=== PATIENT | female | born 1995 | race Caucasian/White ===

== ENCOUNTER → 2016-12-22 | Outpatient (CLI) | payer OTHER ==
[2016-12-22 18:43] LABS: FREE T4 0.95 NG/DL (0.78-1.33)
== END ==
LOC: M SMT 14:48
PROVIDERS: ATTEND Physician Assistant
DX: R07.89 Other chest pain (principal)

== ENCOUNTER → 2017-05-25 | Outpatient (CLI) | payer OTHER | LOC: M SMT 15:18 | PROVIDERS: ATTEND Family Medicine | DX: Z23 Encounter for immunization (principal) ==

== ENCOUNTER → 2017-06-02 | Outpatient (REF) | payer OTHER | LOC: M LAB REF 17:36 | PROVIDERS: ATTEND Advanced Practice Midwife | DX: Z12.4 Encounter for screening for malignant neoplasm of cervix (principal) ==

== ENCOUNTER → 2017-10-05 | Outpatient (CLI) | payer OTHER ==
[2017-10-05 13:18] LABS: MEAN CORPUSCULAR HGB CONC 33.7 g/dl (32.0-36.5); PLATELET COUNT, AUTOMATED 193 10^3/uL (150-450); RED CELL DISTRIBUTION WIDTH 12.2 % (11.5-14.5); WHITE BLOOD COUNT 5.2 10^3/uL (4.0-10.0)
[2017-10-05 13:34] LABS: ALBUMIN 3.9 GM/DL (3.2-5.2); ALBUMIN/GLOBULIN RATIO 1.11 (1.00-1.93); ALKALINE PHOSPHATASE 79 U/L (45-117); ALT/SGPT 39 U/L (12-78); ANION GAP 6 MEQ/L (8-16); AST/SGOT 18 U/L (7-37); BILIRUBIN,TOTAL 0.5 MG/DL (0.2-1.0); BLOOD UREA NITROGEN 16 MG/DL (7-18); CALCIUM LEVEL 8.8 MG/DL (8.5-10.1); CARBON DIOXIDE LEVEL 27 MEQ/L (21-32); CHLORIDE LEVEL 106 MEQ/L (98-107); CREATININE FOR GFR 0.89 MG/DL (0.55-1.02); GLUCOSE, FASTING 182 MG/DL (70-105); POTASSIUM SERUM 4.1 MEQ/L (3.5-5.1); SODIUM LEVEL 139 MEQ/L (136-145); TOTAL PROTEIN 7.4 GM/DL (6.4-8.2); URIC ACID 5.4 MG/DL (2.6-6.0)
[2017-10-05 17:19] LABS: ESTIMATED AVERAGE GLUCOSE 117 MG/DL (60-110)
== END ==
LOC: M SMT 10:36
DX: M25.541 Pain in joints of right hand (principal)
CPT/HCPCS: 84550

== ENCOUNTER → 2017-12-19 | Outpatient (CLI) | payer OTHER ==
[2017-12-19 12:18] LABS: ESTIMATED AVERAGE GLUCOSE 123 MG/DL (60-110); HEMOGLOBIN A1c 5.9 %
== END ==
LOC: M SMT 08:57
DX: R73.03 Prediabetes (principal)
CPT/HCPCS: 83036

== ENCOUNTER 2018-05-29 14:57 | Inpatient (IN) | payer OTHER ==
[2018-05-29 16:15] LABS: VENOUS BASE EXCESS -7.9 (-2.0-2.0); VENOUS HCO3 17.3 MEQ/L (23.0-27.0); VENOUS O2 SATURATION 92.9 % (60.0-80.0); VENOUS PARTIAL PRESSURE CO2 34.6 mmHg (38.0-50.0); VENOUS PARTIAL PRESSURE O2 65.3 mmHg (30.0-50.0); VENOUS PH 7.316 UNITS (7.330-7.430); VENOUS STANDARD HCO3 18.1 MEQ/L; VENOUS TOTAL CO2 18.3 MEQ/L (24.0-28.0)
[2018-05-29 16:20] LABS: BASO # 0.1 10^3/uL (0.0-0.2); BASO % 0.6 % (0.0-1.0); EOS # 0.1 10^3/uL (0.0-0.50); EOS % 0.7 % (0.0-3.0); HEMATOCRIT 40.2 % (36.0-47.0); HEMOGLOBIN 14.6 g/dl (12.0-15.5); IMMATURE GRANULOCYTE % 0.7 % (0-3.0); LYMPH # 1.9 10^3/uL (1.5-6.5); LYMPH % 18.7 % (24.0-44.0); MEAN CORPUSCULAR HEMOGLOBIN 31.2 pg (27.0-33.0); MEAN CORPUSCULAR HGB CONC 36.3 g/dl (32.0-36.5); MEAN CORPUSCULAR VOLUME 85.9 fl (80.0-96.0); MONO # 0.6 10^3/uL (0.0-0.8); MONO % 5.6 % (0.0-5.0); NEUTROPHILS # 7.5 10^3/uL (1.8-7.7); NEUTROPHILS % 73.7 % (36.0-66.0); PLATELET COUNT, AUTOMATED 159 10^3/uL (150-450); RED BLOOD COUNT 4.68 10^6/uL (4.00-5.40); RED CELL DISTRIBUTION WIDTH 12.4 % (11.5-14.5); WHITE BLOOD COUNT 10.2 10^3/uL (4.0-10.0)
[2018-05-29] MEDS: NS 1,000 ML IV ×3 (16:33→21:10)
[2018-05-29 16:36] LABS: ALBUMIN 3.7 GM/DL (3.2-5.2); ALBUMIN/GLOBULIN RATIO 1.19 (1.00-1.93); ALKALINE PHOSPHATASE 110 U/L (45-117); ALT/SGPT 25 U/L (12-78); ANION GAP 16 MEQ/L (8-16); AST/SGOT 11 U/L (7-37); BILIRUBIN,DIRECT 0.2 MG/DL (0.0-0.2); BILIRUBIN,TOTAL 0.7 MG/DL (0.2-1.0); BLOOD UREA NITROGEN 7 MG/DL (7-18); CALCIUM LEVEL 8.7 MG/DL (8.5-10.1); CARBON DIOXIDE LEVEL 20 MEQ/L (21-32); CHLORIDE LEVEL 98 MEQ/L (98-107); CREATININE FOR GFR 0.84 MG/DL (0.55-1.30); GLOMERULAR FILTRATION RATE > 60.0 (>60); LIPASE 85 U/L (73-393); POTASSIUM SERUM 3.6 MEQ/L (3.5-5.1); SODIUM LEVEL 134 MEQ/L (136-145); TOTAL PROTEIN 6.8 GM/DL (6.4-8.2)
[2018-05-29 16:40] LABS: GLUCOSE, FASTING 526 MG/DL (70-100)
[2018-05-29 16:41] LABS: ETHYL ALCOHOL (ETHANOL) < 0.003 % (0.000-0.010)
[2018-05-29] MEDS ORDERED: INSULIN IV RATE CHANGE DOCUMENTATION ML/HR XX (16:45)
[2018-05-29 16:55] LABS: ACETONE/KETONE > 46.00 MG/DL (<2.81)
[2018-05-29 17:03] LABS: AMPHETAMINES LEVEL URINE NEGATIVE (NEGATIVE); BARBITURATES URINE NEGATIVE (NEGATIVE); BENZODIAZEPINES URINE NEGATIVE (NEGATIVE); CANNABINOIDS URINE NEGATIVE (NEGATIVE); COCAINE METABOLITE URINE NEGATIVE (NEGATIVE); METHADONE URINE NEGATIVE (NEGATIVE); OPIATES URINE NEGATIVE (NEGATIVE); PHENCYCLIDINE URINE NEGATIVE (NEGATIVE)
[2018-05-29 17:07] LABS: CONTROL LINE HCG INT CTR LINE PRESENT; HCG, SERUM QUALITATIVE NEGATIVE (NEGATIVE)
[2018-05-29 17:14] LABS: KETONE, URINE AUTO RFX 2+ mg/dL (NEGATIVE); MUCUS, URINE RFX SMALL (NEGATIVE); NITRITE, URINE AUTO RFX NEGATIVE (NEGATIVE); RBC, URINE AUTO RFX 7 /HPF (0-3); SPECIFIC GRAVITY UR AUTO RFX 1.035 (1.002-1.035); SQUAM EPITHELIAL CELL UR AURFX 3 /HPF (0-6); WBC, URINE AUTO RFX 4 /HPF (0-3)
[2018-05-29 17:17] LABS: BEDSIDE GLUCOSE 465 MG/DL (70-105)
[2018-05-29] MEDS: INSULIN HUMAN REGULAR 100 UNITS in NS 99 ML IV ×2 (17:17→18:15)
[2018-05-29 17:19] LABS: LEUKOCYTE ESTERASE UR AUTO RFX TRACE (NEGATIVE)
[2018-05-29 18:10] LABS: BEDSIDE GLUCOSE 358 MG/DL (70-105)
[2018-05-29] MEDS: KCL 10MEQ/100ML SWI (KRUN) 10 MEQ in APPROPRIATE DILUENT 1 EA IV ×4 (18:39→23:57)
[2018-05-29 19:18] LABS: BEDSIDE GLUCOSE 231 MG/DL (70-105)
[2018-05-29] MEDS: INSULIN IV RATE CHANGE DOCUMENTATION ML/HR XX ×2 (19:18→23:08)
[2018-05-29 19:58] LABS: VENOUS BASE EXCESS -2.7 (-2.0-2.0); VENOUS HCO3 23.4 MEQ/L (23.0-27.0); VENOUS O2 SATURATION 63.1 % (60.0-80.0); VENOUS PARTIAL PRESSURE CO2 45.9 mmHg (38.0-50.0); VENOUS PARTIAL PRESSURE O2 30.7 mmHg (30.0-50.0); VENOUS PH 7.326 UNITS (7.330-7.430); VENOUS STANDARD HCO3 21.4 MEQ/L; VENOUS TOTAL CO2 24.8 MEQ/L (24.0-28.0)
[2018-05-29 20:03] LABS: BEDSIDE GLUCOSE 246 MG/DL (70-105)
[2018-05-29 20:29] LABS: ANION GAP 11 MEQ/L (8-16); BLOOD UREA NITROGEN 7 MG/DL (7-18); CALCIUM LEVEL 8.3 MG/DL (8.5-10.1); CARBON DIOXIDE LEVEL 25 MEQ/L (21-32); CHLORIDE LEVEL 106 MEQ/L (98-107); CREATININE FOR GFR 0.74 MG/DL (0.55-1.30); GLOMERULAR FILTRATION RATE > 60.0 (>60); GLUCOSE, FASTING 233 MG/DL (70-100); POTASSIUM SERUM 3.3 MEQ/L (3.5-5.1); SODIUM LEVEL 142 MEQ/L (136-145)
[2018-05-29 20:59] LABS: ESTIMATED AVERAGE GLUCOSE 306 MG/DL (60-110); HEMOGLOBIN A1c 12.3 %
[2018-05-29 21:09] LABS: BEDSIDE GLUCOSE 234 MG/DL (70-105)
[2018-05-29] MEDS: ENOXAPARIN 40 MG/0.4 ML SYRINGE (J1650) SC (21:09)
[2018-05-29 22:01] LABS: BEDSIDE GLUCOSE 221 MG/DL (70-105)
[2018-05-29 22:31] LABS: ANION GAP 11 MEQ/L (8-16); BLOOD UREA NITROGEN 7 MG/DL (7-18); CALCIUM LEVEL 8.2 MG/DL (8.5-10.1); CARBON DIOXIDE LEVEL 21 MEQ/L (21-32); CHLORIDE LEVEL 108 MEQ/L (98-107); CREATININE FOR GFR 0.69 MG/DL (0.55-1.30); GLOMERULAR FILTRATION RATE > 60.0 (>60); GLUCOSE, FASTING 223 MG/DL (70-100); POTASSIUM SERUM 3.1 MEQ/L (3.5-5.1); SODIUM LEVEL 140 MEQ/L (136-145)
[2018-05-29 23:05] LABS: BEDSIDE GLUCOSE 188 MG/DL (70-105)
[2018-05-29] MEDS: D5W/0.45% SODIUM CHLORIDE 1,000 ML IV (23:57)
[2018-05-29 23:58] LABS: BEDSIDE GLUCOSE 196 MG/DL (70-105)
[2018-05-30 00:13] LABS: ANION GAP 9 MEQ/L (8-16); BLOOD UREA NITROGEN 6 MG/DL (7-18); CALCIUM LEVEL 7.8 MG/DL (8.5-10.1); CARBON DIOXIDE LEVEL 22 MEQ/L (21-32); CHLORIDE LEVEL 110 MEQ/L (98-107); CREATININE FOR GFR 0.51 MG/DL (0.55-1.30); GLOMERULAR FILTRATION RATE > 60.0 (>60); GLUCOSE, FASTING 187 MG/DL (70-100); POTASSIUM SERUM 3.2 MEQ/L (3.5-5.1); SODIUM LEVEL 141 MEQ/L (136-145)
[2018-05-30 01:17] LABS: BEDSIDE GLUCOSE 241 MG/DL (70-105)
[2018-05-30] MEDS: INSULIN IV RATE CHANGE DOCUMENTATION ML/HR XX (01:17)
[2018-05-30 02:12] LABS: ANION GAP 9 MEQ/L (8-16); BLOOD UREA NITROGEN 5 MG/DL (7-18); CALCIUM LEVEL 7.5 MG/DL (8.5-10.1); CARBON DIOXIDE LEVEL 22 MEQ/L (21-32); CHLORIDE LEVEL 110 MEQ/L (98-107); CREATININE FOR GFR 0.54 MG/DL (0.55-1.30); GLOMERULAR FILTRATION RATE > 60.0 (>60); GLUCOSE, FASTING 259 MG/DL (70-100); POTASSIUM SERUM 3.2 MEQ/L (3.5-5.1); SODIUM LEVEL 141 MEQ/L (136-145)
[2018-05-30] MEDS: KCL 20MEQ IN D5/0.45NS 1000ML 1,000 ML IV ×2 (02:45→06:52)
[2018-05-30 03:07] LABS: BEDSIDE GLUCOSE 285 MG/DL (70-105)
[2018-05-30 03:10] LABS: BEDSIDE GLUCOSE 274 MG/DL (70-105)
[2018-05-30 04:25] LABS: BEDSIDE GLUCOSE 265 MG/DL (70-105)
[2018-05-30 04:35] LABS: HEMATOCRIT 35.7 % (36.0-47.0); HEMOGLOBIN 12.7 g/dl (12.0-15.5); MEAN CORPUSCULAR HEMOGLOBIN 30.8 pg (27.0-33.0); MEAN CORPUSCULAR HGB CONC 35.6 g/dl (32.0-36.5); MEAN CORPUSCULAR VOLUME 86.7 fl (80.0-96.0); PLATELET COUNT, AUTOMATED 116 10^3/uL (150-450); RED BLOOD COUNT 4.12 10^6/uL (4.00-5.40); RED CELL DISTRIBUTION WIDTH 12.3 % (11.5-14.5)
[2018-05-30 04:59] LABS: ANION GAP 9 MEQ/L (8-16); BLOOD UREA NITROGEN 4 MG/DL (7-18); CALCIUM LEVEL 7.3 MG/DL (8.5-10.1); CARBON DIOXIDE LEVEL 21 MEQ/L (21-32); CHLORIDE LEVEL 110 MEQ/L (98-107); CREATININE FOR GFR 0.57 MG/DL (0.55-1.30); GLOMERULAR FILTRATION RATE > 60.0 (>60); GLUCOSE, FASTING 283 MG/DL (70-100); POTASSIUM SERUM 3.2 MEQ/L (3.5-5.1); SODIUM LEVEL 140 MEQ/L (136-145)
[2018-05-30 05:21] LABS: BEDSIDE GLUCOSE 279 MG/DL (70-105)
[2018-05-30 06:09] LABS: ANION GAP 9 MEQ/L (8-16); BLOOD UREA NITROGEN 4 MG/DL (7-18); CALCIUM LEVEL 7.3 MG/DL (8.5-10.1); CARBON DIOXIDE LEVEL 22 MEQ/L (21-32); CHLORIDE LEVEL 110 MEQ/L (98-107); CREATININE FOR GFR 0.53 MG/DL (0.55-1.30); GLOMERULAR FILTRATION RATE > 60.0 (>60); GLUCOSE, FASTING 286 MG/DL (70-100); MAGNESIUM LEVEL 1.6 MG/DL (1.8-2.4); POTASSIUM SERUM 3.4 MEQ/L (3.5-5.1); SODIUM LEVEL 141 MEQ/L (136-145)
[2018-05-30 06:49] LABS: BEDSIDE GLUCOSE 280 MG/DL (70-105)
[2018-05-30 08:08] LABS: BEDSIDE GLUCOSE 277 MG/DL (70-105)
[2018-05-30] MEDS: LEVEMIR (INSULIN DETEMIR) 1 UNITS/0.01ML SC ×3 (08:40→20:28)
[2018-05-30] MEDS: PANTOPRAZOLE 40MG TAB (PROTONIX) PO (08:41)
[2018-05-30 08:51] LABS: BEDSIDE GLUCOSE 283 MG/DL (70-105)
[2018-05-30] MEDS ORDERED: GLUCAGON FOR INJ 1 MG VIAL (J1610) SC (09:15)
[2018-05-30] MEDS ORDERED: GLUCOSE 4 GM CHEW TABLET PO (09:15)
[2018-05-30] MEDS ORDERED: DEXTROSE 50% 50 ML SYRINGE IV (09:15)
[2018-05-30] MEDS: ACETAMINOPHEN 325 MG TAB PO (09:50)
[2018-05-30 10:11] LABS: BEDSIDE GLUCOSE 315 MG/DL (70-105)
[2018-05-30] MEDS: POTASSIUM CHLORIDE 10 MEQ SR TABLET PO ×2 (11:02→18:28)
[2018-05-30] MEDS: MAG SULF 1GM/100ML (MAG RUN) 1 GM in APPROPRIATE DILUENT 1 EA IV (11:03)
[2018-05-30 12:20] LABS: BEDSIDE GLUCOSE 337 MG/DL (70-105)
[2018-05-30] MEDS: HumaLOG INSULIN (NovoLOG) PER UNIT SC ×3 (12:26→20:29)
[2018-05-30 14:17] LABS: ANION GAP 12 MEQ/L (8-16); BLOOD UREA NITROGEN 3 MG/DL (7-18); CALCIUM LEVEL 8.2 MG/DL (8.5-10.1); CARBON DIOXIDE LEVEL 18 MEQ/L (21-32); CHLORIDE LEVEL 110 MEQ/L (98-107); CREATININE FOR GFR 0.65 MG/DL (0.55-1.30); GLOMERULAR FILTRATION RATE > 60.0 (>60); GLUCOSE, FASTING 301 MG/DL (70-100); PHOSPHORUS LEVEL 2.4 MG/DL (2.5-4.9); SODIUM LEVEL 140 MEQ/L (136-145)
[2018-05-30] MEDS: NS 1,000 ML IV (14:51)
[2018-05-30] MEDS: SODIUM PHOSPHATE INJ 30 MMOL in D5W 500 ML IV (15:18)
[2018-05-30 15:24] LABS: ACETONE/KETONE 6.17 MG/DL (<2.81)
[2018-05-30 15:26] LABS: OSMOLALITY URINE 656 MOSM/KG (500-800)
[2018-05-30 15:38] LABS: CHLORIDE,RANDOM URINE 146 MEQ/L; CREATININE,RANDOM URINE 27.9 MG/DL; POTASSIUM RANDOM URINE 16.5 MEQ/L; SODIUM,RANDOM URINE 117 MEQ/L
[2018-05-30 17:01] LABS: BEDSIDE GLUCOSE 290 MG/DL (70-105)
[2018-05-30 17:40] LABS: ANION GAP 9 MEQ/L (8-16); BLOOD UREA NITROGEN 5 MG/DL (7-18); CALCIUM LEVEL 8.4 MG/DL (8.5-10.1); CARBON DIOXIDE LEVEL 24 MEQ/L (21-32); CHLORIDE LEVEL 107 MEQ/L (98-107); CREATININE FOR GFR 0.59 MG/DL (0.55-1.30); GLOMERULAR FILTRATION RATE > 60.0 (>60); GLUCOSE, FASTING 292 MG/DL (70-100); MAGNESIUM LEVEL 1.8 MG/DL (1.8-2.4); PHOSPHORUS LEVEL 3.5 MG/DL (2.5-4.9); POTASSIUM SERUM 3.8 MEQ/L (3.5-5.1); SODIUM LEVEL 140 MEQ/L (136-145)
[2018-05-30 17:51] LABS: ACETONE/KETONE 15.85 MG/DL (<2.81)
[2018-05-30] MEDS: MAGNESIUM OXIDE 400 MG TAB (MAG-OX) PO (18:28)
[2018-05-30 20:23] LABS: BEDSIDE GLUCOSE 307 MG/DL (70-105)
[2018-05-30] MEDS: ENOXAPARIN 40 MG/0.4 ML SYRINGE (J1650) SC (20:29)
[2018-05-30 22:18] LABS: APPEARANCE, URINE HAZY (CLEAR); BACTERIA, URINE AUTO 1+ (NEGATIVE); BILIRUBIN, URINE AUTO NEGATIVE (NEGATIVE); BLOOD, URINE BLOOD 2+ (NEGATIVE); COLOR, URINE STRAW (YELLOW); GLUCOSE, URINE (UA) AUTO 3+ mg/dL (NEGATIVE); KETONE, URINE AUTO TRACE mg/dL (NEGATIVE); LEUKOCYTE ESTERASE, URINE AUTO 1+ (NEGATIVE); NITRITE, URINE AUTO NEGATIVE (NEGATIVE); PROTEIN, URINE AUTO NEGATIVE (NEGATIVE); RBC, URINE AUTO 2 /HPF (0-3); SPECIFIC GRAVITY URINE AUTO 1.025 (1.002-1.035); SQUAMOUS EPITHELIAL CELL UR AU 3 /HPF (0-6); UROBILINOGEN, URINE AUTO 0.2 mg/dL (0.0-2.0); WBC, URINE AUTO 14 /HPF (0-3)
[2018-05-30 22:48] LABS: ACETONE/KETONE 9.57 MG/DL (<2.81); ANION GAP 6 MEQ/L (8-16); BLOOD UREA NITROGEN 6 MG/DL (7-18); CALCIUM LEVEL 8.5 MG/DL (8.5-10.1); CARBON DIOXIDE LEVEL 27 MEQ/L (21-32); CHLORIDE LEVEL 109 MEQ/L (98-107); CREATININE FOR GFR 0.59 MG/DL (0.55-1.30); GLOMERULAR FILTRATION RATE > 60.0 (>60); GLUCOSE, FASTING 215 MG/DL (70-100); MAGNESIUM LEVEL 1.8 MG/DL (1.8-2.4); PHOSPHORUS LEVEL 3.2 MG/DL (2.5-4.9); POTASSIUM SERUM 3.9 MEQ/L (3.5-5.1); SODIUM LEVEL 142 MEQ/L (136-145)
[2018-05-31 05:08] LABS: HEMATOCRIT 37.9 % (36.0-47.0); HEMOGLOBIN 13.3 g/dl (12.0-15.5); MEAN CORPUSCULAR HEMOGLOBIN 30.9 pg (27.0-33.0); MEAN CORPUSCULAR HGB CONC 35.1 g/dl (32.0-36.5); MEAN CORPUSCULAR VOLUME 87.9 fl (80.0-96.0); PLATELET COUNT, AUTOMATED 148 10^3/uL (150-450); RED BLOOD COUNT 4.31 10^6/uL (4.00-5.40); RED CELL DISTRIBUTION WIDTH 12.5 % (11.5-14.5); WHITE BLOOD COUNT 6.9 10^3/uL (4.0-10.0)
[2018-05-31 05:42] LABS: ANION GAP 9 MEQ/L (8-16); BLOOD UREA NITROGEN 5 MG/DL (7-18); CALCIUM LEVEL 8.3 MG/DL (8.5-10.1); CARBON DIOXIDE LEVEL 25 MEQ/L (21-32); CHLORIDE LEVEL 109 MEQ/L (98-107); GLOMERULAR FILTRATION RATE > 60.0 (>60); GLUCOSE, FASTING 164 MG/DL (70-100); MAGNESIUM LEVEL 1.9 MG/DL (1.8-2.4); POTASSIUM SERUM 3.3 MEQ/L (3.5-5.1); SODIUM LEVEL 143 MEQ/L (136-145)
[2018-05-31 08:49] LABS: BEDSIDE GLUCOSE 182 MG/DL (70-105)
[2018-05-31] MEDS: LEVEMIR (INSULIN DETEMIR) 1 UNITS/0.01ML SC ×2 (08:54→21:45)
[2018-05-31] MEDS: HumaLOG INSULIN (NovoLOG) PER UNIT SC ×4 (08:54→21:46)
[2018-05-31] MEDS: ACETAMINOPHEN 325 MG TAB PO ×2 (08:55→21:44)
[2018-05-31] MEDS: PANTOPRAZOLE 40MG TAB (PROTONIX) PO (08:55)
[2018-05-31] MEDS: POTASSIUM CHLORIDE 10 MEQ SR TABLET PO (08:55)
[2018-05-31] MEDS ORDERED: SODIUM CHLORIDE NASAL 0.65% SPRAY BTL (OCEAN) (11:00)
[2018-05-31 13:17] LABS: BEDSIDE GLUCOSE 220 MG/DL (70-105)
[2018-05-31 17:48] LABS: BEDSIDE GLUCOSE 317 MG/DL (70-105)
[2018-05-31 20:42] LABS: BEDSIDE GLUCOSE 358 MG/DL (70-105)
[2018-05-31] MEDS: ENOXAPARIN 40 MG/0.4 ML SYRINGE (J1650) SC (21:45)
[2018-05-31] MEDS: MICONAZOLE-7 VAGINAL 2% CREAM 47.7 GM PV (21:55)
[2018-06-01 07:56] LABS: HEMATOCRIT 38.9 % (36.0-47.0); HEMOGLOBIN 13.9 g/dl (12.0-15.5); MEAN CORPUSCULAR HEMOGLOBIN 31.4 pg (27.0-33.0); MEAN CORPUSCULAR HGB CONC 35.7 g/dl (32.0-36.5); MEAN CORPUSCULAR VOLUME 87.8 fl (80.0-96.0); PLATELET COUNT, AUTOMATED 159 10^3/uL (150-450); RED BLOOD COUNT 4.43 10^6/uL (4.00-5.40); RED CELL DISTRIBUTION WIDTH 12.8 % (11.5-14.5); WHITE BLOOD COUNT 8.7 10^3/uL (4.0-10.0)
[2018-06-01 08:20] LABS: ANION GAP 8 MEQ/L (8-16); BLOOD UREA NITROGEN 9 MG/DL (7-18); CALCIUM LEVEL 8.6 MG/DL (8.5-10.1); CARBON DIOXIDE LEVEL 28 MEQ/L (21-32); CHLORIDE LEVEL 106 MEQ/L (98-107); GLOMERULAR FILTRATION RATE > 60.0 (>60); GLUCOSE, FASTING 156 MG/DL (70-100); POTASSIUM SERUM 3.6 MEQ/L (3.5-5.1); SODIUM LEVEL 142 MEQ/L (136-145); TROPONIN I < 0.02 NG/ML (< 0.10)
[2018-06-01] MEDS: HumaLOG INSULIN (NovoLOG) PER UNIT SC ×4 (09:23→21:00)
[2018-06-01] MEDS: LEVEMIR (INSULIN DETEMIR) 1 UNITS/0.01ML SC ×2 (09:24→22:10)
[2018-06-01] MEDS: PANTOPRAZOLE 40MG TAB (PROTONIX) PO (09:24)
[2018-06-01 11:04] LABS: BEDSIDE GLUCOSE 304 MG/DL (70-105)
[2018-06-01 12:07] LABS: BEDSIDE GLUCOSE 288 MG/DL (70-105)
[2018-06-01] MEDS: DEXTROMETHORPHAN 5 ML SYRUP (ROBITUSSIN PEDIATRIC COUGH) PO (13:18)
[2018-06-01 14:48] LABS: BEDSIDE GLUCOSE 265 MG/DL (70-105)
[2018-06-01 17:15] LABS: BEDSIDE GLUCOSE 209 MG/DL (70-105)
[2018-06-01 19:15] LABS: BEDSIDE GLUCOSE 225 MG/DL (70-105)
[2018-06-01 21:42] LABS: BEDSIDE GLUCOSE 248 MG/DL (70-105)
[2018-06-01] MEDS: MICONAZOLE-7 VAGINAL 2% CREAM 47.7 GM PV (22:09)
[2018-06-01] MEDS: ENOXAPARIN 40 MG/0.4 ML SYRINGE (J1650) SC (22:10)
[2018-06-02 08:27] LABS: BEDSIDE GLUCOSE 89 MG/DL (70-105)
[2018-06-02] MEDS: HumaLOG INSULIN (NovoLOG) PER UNIT SC (08:28)
[2018-06-02 08:44] LABS: HEMATOCRIT 43.2 % (36.0-47.0); HEMOGLOBIN 14.9 g/dl (12.0-15.5); MEAN CORPUSCULAR HEMOGLOBIN 31.2 pg (27.0-33.0); MEAN CORPUSCULAR HGB CONC 34.5 g/dl (32.0-36.5); MEAN CORPUSCULAR VOLUME 90.4 fl (80.0-96.0); PLATELET COUNT, AUTOMATED 153 10^3/uL (150-450); RED BLOOD COUNT 4.78 10^6/uL (4.00-5.40); WHITE BLOOD COUNT 7.6 10^3/uL (4.0-10.0)
[2018-06-02 09:12] LABS: ANION GAP 10 MEQ/L (8-16); BLOOD UREA NITROGEN 10 MG/DL (7-18); CALCIUM LEVEL 9.3 MG/DL (8.5-10.1); CARBON DIOXIDE LEVEL 26 MEQ/L (21-32); CHLORIDE LEVEL 109 MEQ/L (98-107); GLOMERULAR FILTRATION RATE > 60.0 (>60); GLUCOSE, FASTING 97 MG/DL (70-100); MAGNESIUM LEVEL 2.2 MG/DL (1.8-2.4); POTASSIUM SERUM 3.7 MEQ/L (3.5-5.1); SODIUM LEVEL 145 MEQ/L (136-145)
[2018-06-02] MEDS: LEVEMIR (INSULIN DETEMIR) 1 UNITS/0.01ML SC (09:14)
[2018-06-02] MEDS: PANTOPRAZOLE 40MG TAB (PROTONIX) PO (09:14)
[2018-06-02 09:40] LABS: BEDSIDE GLUCOSE 203 MG/DL (70-105)
[2018-06-04 14:41] LABS: BEDSIDE GLUCOSE 472 MG/DL (70-105)
== END 2018-06-02 11:50 | disposition home or self-care (01) | DRG 638 ==
LOC: M PED 05-31 14:09 → M ED 14:57 → M ED INP 17:59 → M ICU 19:38
PROVIDERS: Family Medicine
DX: E10.10 Type 1 diabetes mellitus with ketoacidosis without coma (principal); D68.51 Activated protein C resistance; E87.6 Hypokalemia; B37.9 Candidiasis, unspecified; J06.9 Acute upper respiratory infection, unspecified; E83.42 Hypomagnesemia; Z86.718 Personal history of other venous thrombosis and embolism; Z90.49 Acquired absence of other specified parts of digestive tract; Z97.5 Presence of (intrauterine) contraceptive device

== ENCOUNTER → 2018-05-29 | Outpatient (CLI) | payer OTHER ==
[2018-05-29 13:14] LABS: BASO # 0.1 10^3/uL (0.0-0.2); BASO % 0.9 % (0.0-1.0); EOS # 0.1 10^3/uL (0.0-0.50); EOS % 1.1 % (0.0-3.0); HEMATOCRIT 44.9 % (36.0-47.0); HEMOGLOBIN 15.9 g/dl (12.0-15.5); IMMATURE GRANULOCYTE % 0.8 % (0-3.0); LYMPH # 1.9 10^3/uL (1.5-6.5); LYMPH % 19.9 % (24.0-44.0); MEAN CORPUSCULAR HEMOGLOBIN 30.9 pg (27.0-33.0); MEAN CORPUSCULAR HGB CONC 35.4 g/dl (32.0-36.5); MEAN CORPUSCULAR VOLUME 87.2 fl (80.0-96.0); MONO # 0.7 10^3/uL (0.0-0.8); MONO % 7.7 % (0.0-5.0); NEUTROPHILS # 6.5 10^3/uL (1.8-7.7); NEUTROPHILS % 69.6 % (36.0-66.0); PLATELET COUNT, AUTOMATED 183 10^3/uL (150-450); RED BLOOD COUNT 5.15 10^6/uL (4.00-5.40); RED CELL DISTRIBUTION WIDTH 12.5 % (11.5-14.5); WHITE BLOOD COUNT 9.3 10^3/uL (4.0-10.0)
[2018-05-29 13:31] LABS: ESTIMATED AVERAGE GLUCOSE 303 MG/DL (60-110); HEMOGLOBIN A1c 12.2 %
[2018-05-29 13:32] LABS: ALBUMIN 4.1 GM/DL (3.2-5.2); ALBUMIN/GLOBULIN RATIO 1.24 (1.00-1.93); ALKALINE PHOSPHATASE 113 U/L (45-117); ALT/SGPT 27 U/L (12-78); ANION GAP 17 MEQ/L (8-16); AST/SGOT 11 U/L (7-37); BILIRUBIN,TOTAL 0.7 MG/DL (0.2-1.0); BLOOD UREA NITROGEN 6 MG/DL (7-18); CALCIUM LEVEL 9.3 MG/DL (8.5-10.1); CARBON DIOXIDE LEVEL 21 MEQ/L (21-32); CHLORIDE LEVEL 98 MEQ/L (98-107); FREE T4 1.32 NG/DL (0.76-1.46); GLOMERULAR FILTRATION RATE > 60.0 (>60); POTASSIUM SERUM 4.1 MEQ/L (3.5-5.1); SODIUM LEVEL 136 MEQ/L (136-145); TOTAL PROTEIN 7.4 GM/DL (6.4-8.2)
[2018-05-29 13:34] LABS: GLUCOSE, FASTING 401 MG/DL (70-100)
[2018-06-03 00:07] LABS: GAD-65 AUTOANTIBODY 1581.4 U/mL (0.0-5.0)
== END ==
LOC: M SMT 10:52
DX: R63.1 Polydipsia (principal); R73.9 Hyperglycemia, unspecified
CPT/HCPCS: 84443

== ENCOUNTER → 2018-07-17 | Outpatient (REF) | payer OTHER | LOC: M LAB REF 17:09 | DX: N39.0 Urinary tract infection, site not specified (principal) ==

== ENCOUNTER 2018-09-01 19:59 | Day surgery (SDC) | payer OTHER ==
[2018-09-01] MEDS: NS 1,000 ML IV ×2 (20:43→23:59)
[2018-09-01 20:55] LABS: BASO % 0.3 % (0.0-1.0); EOS # 0.1 10^3/uL (0.0-0.50); EOS % 1.3 % (0.0-3.0); IMMATURE GRANULOCYTE % 0.2 % (0-3.0); LYMPH # 3.1 10^3/uL (1.5-6.5); LYMPH % 32.3 % (24.0-44.0); MEAN CORPUSCULAR HEMOGLOBIN 31.3 pg (27.0-33.0); MEAN CORPUSCULAR HGB CONC 34.1 g/dl (32.0-36.5); MEAN CORPUSCULAR VOLUME 91.7 fl (80.0-96.0); MONO # 0.6 10^3/uL (0.0-0.8); MONO % 5.8 % (0.0-5.0); NEUTROPHILS # 5.7 10^3/uL (1.8-7.7); NEUTROPHILS % 60.1 % (36.0-66.0); PLATELET COUNT, AUTOMATED 203 10^3/uL (150-450); RED BLOOD COUNT 4.47 10^6/uL (4.00-5.40); RED CELL DISTRIBUTION WIDTH 11.9 % (11.5-14.5); WHITE BLOOD COUNT 9.4 10^3/uL (4.0-10.0)
[2018-09-01 20:58] LABS: KETONE, URINE AUTO RFX TRACE mg/dL (NEGATIVE); LEUKOCYTE ESTERASE UR AUTO RFX TRACE (NEGATIVE); MUCUS, URINE RFX SMALL (NEGATIVE); NITRITE, URINE AUTO RFX NEGATIVE (NEGATIVE); RBC, URINE AUTO RFX 4 /HPF (0-3); SPECIFIC GRAVITY UR AUTO RFX 1.029 (1.002-1.035); SQUAM EPITHELIAL CELL UR AURFX 12 /HPF (0-6); WBC, URINE AUTO RFX 3 /HPF (0-3)
[2018-09-01 21:19] LABS: ALBUMIN 3.7 GM/DL (3.2-5.2); ALBUMIN/GLOBULIN RATIO 1.06 (1.00-1.93); ALKALINE PHOSPHATASE 71 U/L (45-117); ALT/SGPT 24 U/L (12-78); AMYLASE 37 U/L (25-115); ANION GAP 7 MEQ/L (8-16); AST/SGOT 12 U/L (7-37); BILIRUBIN,DIRECT < 0.1 MG/DL (0.0-0.2); BILIRUBIN,TOTAL 0.3 MG/DL (0.2-1.0); BLOOD UREA NITROGEN 9 MG/DL (7-18); CALCIUM LEVEL 8.9 MG/DL (8.5-10.1); CARBON DIOXIDE LEVEL 27 MEQ/L (21-32); CHLORIDE LEVEL 108 MEQ/L (98-107); GLOMERULAR FILTRATION RATE > 60.0 (>60); GLUCOSE, FASTING 91 MG/DL (70-100); LIPASE 61 U/L (73-393); POTASSIUM SERUM 3.6 MEQ/L (3.5-5.1); SODIUM LEVEL 142 MEQ/L (136-145); TOTAL PROTEIN 7.2 GM/DL (6.4-8.2)
[2018-09-01 21:20] LABS: CONTROL LINE HCG INT CTR LINE PRESENT; HCG, SERUM QUALITATIVE NEGATIVE (NEGATIVE)
[2018-09-01] MEDS ORDERED: ISOVUE-370 76% 100ML VIAL (Q9967) As Ordered (21:23)
[2018-09-01] MEDS ORDERED: MORPHINE 4 MG/ML 1ML VIAL/SYRINGE (J2270) IV (23:30)
[2018-09-01] MEDS ORDERED: ONDANSETRON 4MG/2ML VIAL (J2405) IV (23:30)
[2018-09-01] MEDS ORDERED: ZOSYN 3.375 GM VIAL (J2543) As Ordered (23:49)
[2018-09-01] MEDS: PIPERACILLIN/TAZOBACTAM SOD 3.375 GM in D5W MINI-BAG PLUS 50 ML IV (23:59)
[2018-09-02 00:14] LABS: BEDSIDE GLUCOSE 69 MG/DL (70-105)
[2018-09-02] MEDS ORDERED: KETOROLAC 60 MG/2 ML VIAL (J1885) As Ordered (02:20)
[2018-09-02] MEDS ORDERED: dexameTHASONE 4 MG/ML 1ML VIAL (J1100) As Ordered ×2 (02:20)
[2018-09-02] MEDS ORDERED: ONDANSETRON 4MG/2ML VIAL (J2405) As Ordered ×2 (02:20→03:44)
[2018-09-02] MEDS ORDERED: fentaNYL 250 MCG/5 ML INJECTION (J3010) As Ordered (02:20)
[2018-09-02] MEDS ORDERED: LIDOCAINE 2% INJ 100 MG/5 ML SDV (FOR ANES.) As Ordered (02:20)
[2018-09-02] MEDS ORDERED: MIDAZOLAM INJ 2 MG/2 ML VIAL (J2250) As Ordered (02:20)
[2018-09-02] MEDS ORDERED: PROPOFOL 200 MG/20 ML VIAL As Ordered (02:20)
[2018-09-02] MEDS ORDERED: SUGAMMADEX SODIUM 500 MG/5 ML VIAL (BRIDION) As Ordered (02:22)
[2018-09-02] MEDS: BUPIVACAINE HCL 0.25% 30 ML VIAL As Ordered (03:11)
[2018-09-02] MEDS ORDERED: DEXTROSE 50% 50 ML SYRINGE IV (03:30)
[2018-09-02] MEDS ORDERED: ACETAMINOPHEN TAB 650MG DOSE (2X325MG) PO (03:30)
[2018-09-02] MEDS ORDERED: GLUCAGON FOR INJ 1 MG VIAL (J1610) SC (03:30)
[2018-09-02] MEDS ORDERED: IBUPROFEN 400 MG TAB PO (03:30)
[2018-09-02] MEDS ORDERED: GLUCOSE 4 GM CHEW TABLET PO (03:30)
[2018-09-02 03:31] LABS: BEDSIDE GLUCOSE 80 MG/DL (70-105)
[2018-09-02] MEDS ORDERED: PERCOCET 5MG/325MG TAB As Ordered ×2 (03:44→04:14)
[2018-09-02] MEDS ORDERED: MORPHINE 4 MG/ML 1ML VIAL/SYRINGE (J2270) As Ordered ×3 (03:44→04:14)
[2018-09-02] MEDS: ONDANSETRON 4MG/2ML VIAL (J2405) IV (03:45)
[2018-09-02] MEDS: LR 1,000 ML IV (03:45)
[2018-09-02] MEDS: MORPHINE 10 MG/ML 1ML VIAL (J2270) IV ×5 (03:45→04:17)
[2018-09-02] MEDS ORDERED: fentaNYL 100 MCG/2 ML INJECTION (J3010) IV (03:45)
[2018-09-02] MEDS: PERCOCET 5MG/325MG TAB PO ×2 (03:51→04:18)
[2018-09-02] MEDS: D5W/LR 1,000 ML IV (04:35)
[2018-09-02 06:17] LABS: BEDSIDE GLUCOSE 138 MG/DL (70-105)
[2018-09-02] MEDS: KETOROLAC 30 MG/ML VIAL (J1885) IV (08:16)
[2018-09-02] MEDS: HumaLOG INSULIN (NovoLOG) PER UNIT SC ×2 (08:16→12:22)
[2018-09-02] MEDS: NORCO, ANEXSIA 5/325MG TABLET (HYDROcodone/ACETAMINOPHEN) PO (12:17)
[2018-09-02 12:19] LABS: BEDSIDE GLUCOSE 153 MG/DL (70-105)
[2018-09-02] MEDS ORDERED: HumaLOG INSULIN (NovoLOG) PER UNIT SC (21:00)
== END 2018-09-02 13:05 | disposition home or self-care (01) ==
LOC: M MSPAV 09-02 00:50 → M ED 19:59 → M SDC 09-02 13:05
DX: K35.80 Unspecified acute appendicitis (principal); E11.9 Type 2 diabetes mellitus without complications; D68.59 Other primary thrombophilia; Z79.899 Other long term (current) drug therapy
CPT/HCPCS: 44970

== ENCOUNTER → 2019-04-24 | Outpatient (CLI) | payer OTHER ==
[~2019-04-24] MED LIST: ALCOPAD17 TOP; BIOT10TA2 PO; BLOOKIT21 XX; GLUC1TES2 XX; HUMA100I5 SC; HYDR-3715 PO; INSUDET SC; LANC30MI XX; MIRE1IUD IU; NOVOINJ3 SC; PEN1MIS21 SC; PEN1MIS22 SC; PEN1MIS23 SC; TRES1INJ2 SQ
[2019-04-24 18:22] LABS: BLOOD UREA NITROGEN 13 MG/DL (7-18); CALCIUM LEVEL 9.5 MG/DL (8.5-10.1); CARBON DIOXIDE LEVEL 27 MEQ/L (21-32); CHLORIDE LEVEL 106 MEQ/L (98-107); CREATININE FOR GFR 0.83 MG/DL (0.55-1.30); GLOMERULAR FILTRATION RATE > 60.0 (>60); GLUCOSE, FASTING 89 MG/DL (70-100); POTASSIUM SERUM 4.1 MEQ/L (3.5-5.1); SODIUM LEVEL 139 MEQ/L (136-145)
[2019-04-24 18:44] LABS: HEMOGLOBIN A1c 6.1 %
== END ==
LOC: M SMT 15:15
PROVIDERS: ATTEND Internal Medicine
DX: E10.65 Type 1 diabetes mellitus with hyperglycemia (principal)

== ENCOUNTER → 2020-09-26 | Outpatient (CLI) | payer OTHER | LOC: M LABSMTC 10:12 | PROVIDERS: ATTEND Pediatrics | DX: Z20.828 Contact with and (suspected) exposure to other viral communicable diseases (principal) ==

== ENCOUNTER → 2021-02-17 | Outpatient (REF) | LOC: M LAB REF 15:14 | PROVIDERS: ATTEND Obstetrics & Gynecology Reproductive Endocrinology | DX: E28.9 Ovarian dysfunction, unspecified (principal) ==

== ENCOUNTER → 2021-02-25 | Outpatient (REF) | LOC: M LAB LCGH 10:06 | PROVIDERS: ATTEND Obstetrics & Gynecology Reproductive Endocrinology | DX: Z00.00 Encounter for general adult medical examination without abnormal findings (principal) ==

== ENCOUNTER → 2021-02-27 | Outpatient (REF) | LOC: M LAB LCGH 15:27 | PROVIDERS: ATTEND Obstetrics & Gynecology Reproductive Endocrinology | DX: Z51.81 Encounter for therapeutic drug level monitoring (principal) ==

== ENCOUNTER → 2021-03-02 | Outpatient (REF) | LOC: M LAB LCGH 12:49 | PROVIDERS: ATTEND Obstetrics & Gynecology Reproductive Endocrinology | DX: Z51.81 Encounter for therapeutic drug level monitoring (principal) ==

== ENCOUNTER → 2021-03-05 | Outpatient (REF) | LOC: M LAB LCGH 10:51 | PROVIDERS: ATTEND Obstetrics & Gynecology Reproductive Endocrinology | DX: Z51.81 Encounter for therapeutic drug level monitoring (principal) ==

== ENCOUNTER → 2021-03-19 | Outpatient (REF) | LOC: M LAB LCGH 10:47 | PROVIDERS: ATTEND Obstetrics & Gynecology Reproductive Endocrinology | DX: Z00.00 Encounter for general adult medical examination without abnormal findings (principal) ==

== ENCOUNTER → 2021-03-25 | Outpatient (REF) | LOC: M LAB LCGH 09:47 | PROVIDERS: ATTEND Obstetrics & Gynecology Reproductive Endocrinology | DX: Z51.81 Encounter for therapeutic drug level monitoring (principal) ==

== ENCOUNTER → 2021-03-27 | Outpatient (REF) | LOC: M LAB LCGH 12:42 | PROVIDERS: ATTEND Obstetrics & Gynecology Reproductive Endocrinology | DX: Z00.00 Encounter for general adult medical examination without abnormal findings (principal) ==

== ENCOUNTER → 2021-04-16 | Outpatient (REF) | LOC: M LAB LCGH 15:31 | PROVIDERS: ATTEND Obstetrics & Gynecology Reproductive Endocrinology | DX: Z00.00 Encounter for general adult medical examination without abnormal findings (principal) ==

== ENCOUNTER → 2021-04-22 | Outpatient (REF) | LOC: M LAB LCGH 11:33 | PROVIDERS: ATTEND Obstetrics & Gynecology Reproductive Endocrinology | DX: Z00.00 Encounter for general adult medical examination without abnormal findings (principal) ==

== ENCOUNTER → 2021-04-24 | Outpatient (REF) | LOC: M LAB LCGH 10:19 | PROVIDERS: ATTEND Obstetrics & Gynecology Reproductive Endocrinology | DX: E28.9 Ovarian dysfunction, unspecified (principal) ==

== ENCOUNTER → 2021-04-27 | Outpatient (REF) | LOC: M LAB LCGH 09:35 | PROVIDERS: ATTEND Obstetrics & Gynecology Reproductive Endocrinology | DX: E28.9 Ovarian dysfunction, unspecified (principal) ==

== ENCOUNTER → 2021-05-05 | Outpatient (REF) | LOC: M LAB LCGH 10:12 | PROVIDERS: ATTEND Obstetrics & Gynecology Reproductive Endocrinology | DX: E28.9 Ovarian dysfunction, unspecified (principal) ==

== ENCOUNTER → 2021-06-18 | Outpatient (REF) | LOC: M LAB REF 14:22 | PROVIDERS: ATTEND Obstetrics & Gynecology Reproductive Endocrinology | DX: Z00.00 Encounter for general adult medical examination without abnormal findings (principal) ==

== ENCOUNTER → 2021-06-24 | Outpatient (REF) | LOC: M LAB LCGH 14:26 | PROVIDERS: ATTEND Obstetrics & Gynecology Reproductive Endocrinology | DX: Z02.89 Encounter for other administrative examinations (principal) ==

== ENCOUNTER → 2021-06-29 | Outpatient (REF) | LOC: M LAB LCGH 10:41 | PROVIDERS: ATTEND Obstetrics & Gynecology Reproductive Endocrinology | DX: R79.89 Other specified abnormal findings of blood chemistry (principal) ==

== ENCOUNTER → 2021-07-02 | Outpatient (REF) | LOC: M LAB REF 09:39 | PROVIDERS: ATTEND Obstetrics & Gynecology Reproductive Endocrinology | DX: Z00.00 Encounter for general adult medical examination without abnormal findings (principal) ==

== ENCOUNTER → 2021-07-11 | Outpatient (REF) | LOC: M LAB LCGH 08:29 | PROVIDERS: ATTEND Obstetrics & Gynecology Reproductive Endocrinology | DX: N97.9 Female infertility, unspecified (principal) ==

== ENCOUNTER → 2021-07-21 | Outpatient (REF) | LOC: M LAB LCGH 10:31 | DX: Z51.81 Encounter for therapeutic drug level monitoring (principal) ==

== ENCOUNTER → 2021-07-29 | Outpatient (REF) | LOC: M LAB LCGH 10:57 | PROVIDERS: ATTEND Obstetrics & Gynecology Reproductive Endocrinology | DX: Z51.81 Encounter for therapeutic drug level monitoring (principal) ==

== ENCOUNTER → 2021-07-31 | Outpatient (REF) | LOC: M LAB REF 09:27 | PROVIDERS: ATTEND Obstetrics & Gynecology Reproductive Endocrinology | DX: Z31.41 Encounter for fertility testing (principal) ==

== ENCOUNTER → 2021-08-03 | Outpatient (REF) | LOC: M LAB LCGH 14:30 | PROVIDERS: ATTEND Obstetrics & Gynecology Reproductive Endocrinology | DX: Z31.41 Encounter for fertility testing (principal) ==

== ENCOUNTER → 2021-08-11 | Outpatient (REF) | LOC: M LAB LCGH 14:55 | PROVIDERS: ATTEND Obstetrics & Gynecology Reproductive Endocrinology | DX: Z51.81 Encounter for therapeutic drug level monitoring (principal) ==

== ENCOUNTER → 2021-08-18 | Outpatient (REF) | LOC: M LAB LCGH 11:15 | PROVIDERS: ATTEND Obstetrics & Gynecology Reproductive Endocrinology | DX: Z31.41 Encounter for fertility testing (principal) ==

== ENCOUNTER → 2021-08-20 | Outpatient (REF) | LOC: M LAB LCGH 11:33 | PROVIDERS: ATTEND Obstetrics & Gynecology Reproductive Endocrinology | DX: Z31.41 Encounter for fertility testing (principal) ==

== ENCOUNTER → 2021-09-07 | Outpatient (REF) | LOC: M LAB LCGH 10:59 | PROVIDERS: ATTEND Obstetrics & Gynecology Reproductive Endocrinology | DX: Z31.41 Encounter for fertility testing (principal) ==

== ENCOUNTER → 2021-09-28 | Outpatient (REF) | LOC: M LAB LCGH 10:46 | PROVIDERS: ATTEND Obstetrics & Gynecology Reproductive Endocrinology | DX: Z31.41 Encounter for fertility testing (principal) ==

== ENCOUNTER → 2022-07-29 | Outpatient (REF) | LOC: M LAB REF 02:31 | DX: Z36.9 Encounter for antenatal screening, unspecified (principal) ==

== ENCOUNTER → 2024-02-22 | Outpatient (REF) | payer OTHER, BC ==
[~2024-02-22] MED LIST changes: +PEN-308 SC; +PEN-61 SC; -PEN1MIS21 SC; -PEN1MIS23 SC
== END ==
LOC: M SFHCWAGY 10:23
PROVIDERS: ATTEND Nurse Practitioner Family
DX: Z12.4 Encounter for screening for malignant neoplasm of cervix (principal)

== ENCOUNTER → 2024-04-03 | Outpatient (CLI) | payer BC | LOC: M WHC 10:04 | PROVIDERS: ATTEND Family Medicine | DX: Z12.31 Encounter for screening mammogram for malignant neoplasm of breast (principal); Z80.3 Family history of malignant neoplasm of breast ==

== ENCOUNTER → 2024-04-24 | Outpatient (REF) | payer BC | LOC: M LAB REF 16:57 | PROVIDERS: ATTEND Family Medicine | DX: L02.416 Cutaneous abscess of left lower limb (principal) ==

== ENCOUNTER 2024-11-27 06:13 | Day surgery (SDC) | payer BC ==
[~2024-11-27] VITALS: Ht 162.6 cm; Wt 95.9 kg
[~2024-11-27 06:13] MED LIST changes: +ECOT81TA5 PO; +ENOX40IN3 SC; +INSU100V6 SC; +MULTTAB20 PO; +PROG1CAP9 VG
[2024-11-27 06:57] LABS: HEMOGLOBIN 14.2 g/dl (12.0-15.5); MEAN CORPUSCULAR HEMOGLOBIN 31.3 pg (27.0-33.0); MEAN CORPUSCULAR HGB CONC 34.6 g/dl (32.0-36.5); MEAN CORPUSCULAR VOLUME 90.5 fl (80.0-96.0); PLATELET COUNT, AUTOMATED 175 10^3/uL (150-450); RED BLOOD COUNT 4.53 10^6/uL (4.00-5.40); WHITE BLOOD COUNT 8.9 10^3/uL (4.0-10.0)
[2024-11-27] MEDS: LR 1,000 ML IV SCH (06:58)
[2024-11-27] MEDS ORDERED: LIDOCAINE 2% 100MG/5ML SDV (FOR ANES.) As Ordered ONE (07:06)
[2024-11-27] MEDS ORDERED: ONDANSETRON 4MG 2ML VIAL As Ordered ONE (07:06)
[2024-11-27] MEDS ORDERED: propofoL 200 MG/20 ML VIAL As Ordered ONE (07:06)
[2024-11-27] MEDS ORDERED: fentaNYL 100 MCG/2 ML INJECTION As Ordered ONE (07:06)
[2024-11-27] MEDS ORDERED: MIDAZOLAM INJ 2MG/2ML VIAL As Ordered ONE (07:07)
[2024-11-27] MEDS: ceFAZolin SOD 2 GM in IV 1 EA IV ONE (08:15)
[2024-11-27] MEDS ORDERED: CHLOROPROCAINE PRES. FREE 3% 20ML VIAL As Ordered ONE (08:41)
[2024-11-27] MEDS ORDERED: ACETAMINOPHEN 1000MG/100ML IV BAG As Ordered ONE (08:43)
[2024-11-27] MEDS ORDERED: ONDANSETRON 4MG 2ML VIAL IV PRN (09:00)
[2024-11-27] MEDS ORDERED: fentaNYL 100 MCG/2 ML INJECTION IV PRN (09:00)
[2024-11-27] MEDS ORDERED: LR 1,000 ML IV SCH (09:00)
[2024-11-27 10:00] VITALS: BP 125/79
[2024-11-27] MEDS: INDOMETHACIN 25 MG CAP PO PRN (11:29)
[2024-11-27 11:55] VITALS: TEMP 98.2; O2SAT 100
[2024-11-28] MEDS ORDERED: INDO-16 PO (17:35)
== END 2024-11-27 11:57 | disposition home or self-care (01) ==
LOC: M SDC 06:13
PROVIDERS: ATTEND Obstetrics & Gynecology
DX: O34.32 Maternal care for cervical incompetence, second trimester (principal); O24.012 Pre-existing type 1 diabetes mellitus, in pregnancy, second trimester; Z3A.14 14 weeks gestation of pregnancy; Z87.51 Personal history of pre-term labor; Z68.37 Body mass index [BMI] 37.0-37.9, adult; Z88.3 Allergy status to other anti-infective agents; Z88.2 Allergy status to sulfonamides; Z88.1 Allergy status to other antibiotic agents; Z88.8 Allergy status to other drugs, medicaments and biological substances; Z79.899 Other long term (current) drug therapy; Z79.4 Long term (current) use of insulin
CPT/HCPCS: 36415; 59320; 85027; 86850; 86900; 86901; J0131; J0690; J1100; J2250; J2401; J2405; J3010

== ENCOUNTER → 2025-01-04 | Outpatient (CLI) | payer BC ==
[~2025-01-04] MED LIST changes: +INDO-16 PO
== END ==
LOC: M WHC 08:10
PROVIDERS: ATTEND Obstetrics & Gynecology
DX: Z34.92 Encounter for supervision of normal pregnancy, unspecified, second trimester (principal); Z3A.20 20 weeks gestation of pregnancy

== ENCOUNTER 2025-01-12 07:05 | Emergency (ER) | payer BC ==
[2025-01-12] MEDS ORDERED: ACET-897 PO (07:43)
[2025-01-12] MEDS ORDERED: TUMS500C PO (07:44)
== END 2025-01-12 07:09 | disposition admitted as inpatient to this hospital (09) ==
LOC: M ED 07:05
DX: Z53.21 Procedure and treatment not carried out due to patient leaving prior to being seen by health care provider (principal)

== ENCOUNTER 2025-01-12 07:13 | Outpatient (CLI) | payer BC ==
[~2025-01-12] VITALS: Ht 165.1 cm; Wt 98.2 kg
[2025-01-12] MEDS ORDERED: ACET-897 PO (07:43)
[2025-01-12] MEDS ORDERED: TUMS500C PO (07:44)
[2025-01-12 07:46] VITALS: BP 113/70
[2025-01-12 08:26] LABS: KETONE, URINE AUTO RFX TRACE mg/dL (NEGATIVE); LEUKOCYTE ESTERASE UR AUTO RFX NEGATIVE (NEGATIVE); MUCUS, URINE RFX SMALL (NEGATIVE); NITRITE, URINE AUTO RFX NEGATIVE (NEGATIVE); RBC, URINE AUTO RFX 1 /HPF (0-3); SQUAM EPITHELIAL CELL UR AURFX 2 /HPF (0-6); WBC, URINE AUTO RFX 1 /HPF (0-3)
[2025-01-12 09:38] VITALS: BP 121/71
== END 2025-01-12 09:40 | disposition home or self-care (01) ==
LOC: M LDO 07:13
PROVIDERS: ATTEND Obstetrics & Gynecology
DX: O34.32 Maternal care for cervical incompetence, second trimester (principal); O26.892 Other specified pregnancy related conditions, second trimester; O09.212 Supervision of pregnancy with history of pre-term labor, second trimester; O24.012 Pre-existing type 1 diabetes mellitus, in pregnancy, second trimester; O99.112 Other diseases of the blood and blood-forming organs and certain disorders involving the immune mechanism complicating pregnancy, second trimester; O99.342 Other mental disorders complicating pregnancy, second trimester; O99.412 Diseases of the circulatory system complicating pregnancy, second trimester; R10.2 Pelvic and perineal pain; Z79.890 Hormone replacement therapy; E10.9 Type 1 diabetes mellitus without complications; Z79.4 Long term (current) use of insulin; Z86.718 Personal history of other venous thrombosis and embolism; D68.51 Activated protein C resistance; F41.9 Anxiety disorder, unspecified; F32.A Depression, unspecified; I47.10 Supraventricular tachycardia, unspecified; Z86.14 Personal history of Methicillin resistant Staphylococcus aureus infection; Z3A.21 21 weeks gestation of pregnancy
CPT/HCPCS: 76817; 81001; G0463

== ENCOUNTER → 2025-02-18 | Outpatient (CLI) | payer BC ==
[~2025-02-18] MED LIST changes: +ACET-897 PO; +TUMS500C PO
== END ==
LOC: M WHC 09:15
PROVIDERS: ATTEND Obstetrics & Gynecology
DX: O24.012 Pre-existing type 1 diabetes mellitus, in pregnancy, second trimester (principal); Z3A.26 26 weeks gestation of pregnancy

== ENCOUNTER → 2025-02-18 | Outpatient (CLI) | payer BC ==
[2025-02-18 14:33] LABS: HIV 1&2 SCREEN NEGATIVE (NEGATIVE)
[2025-02-18 14:41] LABS: HEPATITIS C VIRUS ABY INDEX 0.04 INDEX (<0.8)
[2025-02-18 15:39] LABS: Trichomonas vaginalis (AMP) NOT DETECTED (NEGATIVE)
[2025-02-18 16:03] LABS: GC DNA AMPLIFICATION NEGATIVE (NEGATIVE)
== END ==
LOC: M PLALAB 10:41
PROVIDERS: ATTEND Obstetrics & Gynecology
DX: O24.012 Pre-existing type 1 diabetes mellitus, in pregnancy, second trimester (principal); Z3A.00 Weeks of gestation of pregnancy not specified